=== PATIENT | female | born 1975 ===

== ENCOUNTER 2016-06-24 08:32 | Emergency (ER) | payer OTHER ==
[2016-06-24 08:32] VITALS: BMI 31.8
[2016-06-24 08:46] VITALS: O2SAT 98
[2016-06-24] MEDS ORDERED: Sodium Chloride 0.9% 1,000 ML IV STA (08:59)
[2016-06-24] MEDS ORDERED: Sodium Chloride 0.9% 1,000 ML ONE (09:05)
[2016-06-24 09:27] LABS: BASO # 0.1 K/uL (0.0-0.2); BASO % 0.9 % (0.0-2.0); EOS # 0.2 K/uL (0.0-0.7); EOS % 2.9 % (0.0-4.0); HEMATOCRIT 41.3 % (34.0-47.0); LYMPH # 1.7 K/uL (1.0-4.3); LYMPH % 20.6 % (20.0-40.0); MEAN CELL VOLUME 87.5 fL (81.0-99.0); MEAN CORPUSCULAR HGB CONC 33.2 g/dL (33.0-37.0); MEAN PLATELET VOLUME 8.5 fL (7.2-11.7); MONO # 0.6 K/uL (0.0-0.8); MONO % 7.1 % (0.0-10.0); NRBC % 0.1 % (0.0-2.0); RED CELL DISTRIBUTION WIDTH 13.7 % (11.5-14.5); WHITE BLOOD COUNT 8.2 K/uL (4.8-10.8)
[2016-06-24 09:34] LABS: CHLORIDE 98 mmol/L (98-107); POTASSIUM 3.8 mmol/L (3.6-5.2); SODIUM 137 mmol/L (132-148)
[2016-06-24 09:36] LABS: GFR AFRICAN-AMERICAN > 60
[2016-06-24 09:37] LABS: ALB/GLOB RATIO 1.3 (1.0-2.1); ALKALINE PHOSPHATASE 77 U/L (38-126); ALT/SGPT 20 U/L (9-52); AST/SGOT 18 U/L (14-36); BILIRUBIN,TOTAL 0.3 mg/dL (0.2-1.3); BLOOD UREA NITROGEN 11 mg/dL (7-17); CALCIUM 8.9 mg/dl (8.6-10.4); CARBON DIOXIDE 27 mmol/L (22-30); GLUCOSE,RANDOM 87 mg/dL (65-105)
[2016-06-24 09:41] LABS: RBC URINE 10 /hpf (0-3); URINE BACTERIA OCC (<OCC); URINE BILIRUBIN NEGATIVE (NEGATIVE); URINE BLOOD 1+ (NEGATIVE); URINE COLOR Yellow (YELLOW); URINE GLUCOSE (UA) NORMAL (Normal); URINE KETONE NEGATIVE (NEGATIVE); URINE LEUKOCYTE ESTERASE 2+ Leu/uL (Negative); URINE PROTEIN NEGATIVE (NEGATIVE); URINE UROBILINOGEN NORMAL mg/dL (0.2-1.0); WBC URINE 15 /hpf (0-5)
--- NOTE | 2016-06-24 10:49 | C.PDOC ---
History Of Present Illness 41 y/o female presents to the ED complaining of several episodes of dizziness since this morning. She denies any headache, nausea, vomiting, chest pain, fever , chills, vision changes, syncope, or other complaints. Time Seen by Provider: 06/24/16 08:50 Chief Complaint (Nursing): Dizziness/Lightheaded History Per: Patient History/Exam Limitations: no limitations Onset/Duration Of Symptoms: Hrs, Intermittent Episodes, Gradual, Persistent Current Symptoms Are (Timing): Still Present Fall Associated With With Symptoms: No Recent travel outside of the [place]: No Past Medical History Reviewed: Historical Data, Nursing Documentation, Vital Signs Vital Signs: Last Vital Signs Temp 98.3 F 06/24/16 11:20 Pulse 64 06/24/16 11:20 Resp 18 06/24/16 11:20 BP 138/82 06/24/16 11:20 Pulse Ox 98 06/24/16 11:28 - Medical History PMH: Migraine Surgical History: No Surg Hx - [facility] Procedures APPLICATION OF SPLINT (01/07/14) BILAT ENDOS OCC TUBE NEC (02/09/13) Family History: States: Unknown Family Hx - Social History Hx Tobacco Use: No Hx Alcohol Use: No Hx Substance Use: No - Immunization History Hx Tetanus Toxoid Vaccination: No Hx Influenza Vaccination: Yes Hx Pneumococcal Vaccination: No Review Of Systems Except As Marked, All Systems Reviewed And Found Negative. Constitutional: Negative for: Fever, Chills Eyes: Negative for: Vision Change Cardiovascular: Negative for: Chest Pain Gastrointestinal: Negative for: Nausea, Vomiting Neurological: Positive for: Dizziness. Negative for: Headache, Other (syncope) Physical Exam - Physical Exam Appears: Non-toxic, No Acute Distress Skin: Normal Color, Warm, Dry Head: Atraumatic, Normacephalic Eye(s): bilateral: Normal Inspection, PERRL, EOMI Neck: Normal ROM, Supple Chest: Symmetrical Cardiovascular: Rhythm Regular, No Murmur Respiratory: Normal Breath Sounds, No Rales, No Rhonchi, No Wheezing Gastrointestinal/Abdominal: Normal Exam, Soft, No Tenderness Back: Normal Inspection, No CVA Tenderness Extremity: Normal ROM, No Swelling Neurological/Psych: Oriented x3, Normal Speech, Normal Cognition ED Course And Treatment - Laboratory Results Result Diagrams: 06/24/16 09:23 06/24/16 09:23 ECG: Interpreted By Me ECG Rhythm: Sinus Rhythm (with sinus arrhythmia) ECG Interpretation: No Acute Changes Rate From EC (bpm) O2 Sat by Pulse Oximetry: 98 (ra) Pulse Ox Interpretation: Normal Progress Note: EKG, blood work, urinalysis and urine HCG were ordered. Patient was treated with Meclizine and IV fluids. On reevaluation, patient reports improvement of dizziness; denies any neurologic complaints, is ambulating well, is tolerating PO. UA is with signs of UTI. Will discharge patient home on appropriate medications. Patient was instructed to follow up with PMD/clinic in 1-2 days for further evaluation or return to ED if symptoms persist or worsen. Disposition - Disposition Disposition: HOME/ ROUTINE Disposition Time: 11:19 Condition: STABLE Additional Instructions: Follow up with PMD within 1-2 days. Return to ED if feel worse. Prescriptions: Nitrofurantoin Macrocrystals [Macrobid] 1 cap PO BID #14 cap Meclizine [Meclizine*] 25 mg PO Q6 #30 tab Instructions: Vertigo (ED), Urinary Tract Infection in Women (ED) - Clinical Impression Clinical Impression: Vertigo, UTI (urinary tract infection) - PA / MISSING PERSONS INVESTIGATOR / Resident Statement MD/DO has reviewed & agrees with the documentation as recorded. - Scribe Statement The provider has reviewed the documentation as recorded by the Scribe (Natalya Barth) All medical record entries made by the Scribe were at my direction and personally dictated by me. I have reviewed the chart and agree that the record accurately reflects my personal performance of the history, physical exam, medical decision making, and the department course for this patient. I have also personally directed, reviewed, and agree with the discharge instructions and disposition.
[2016-06-24 11:39] VITALS: BP 138/82; PULSE 64; RESP 18; TEMP 98.3
--- NOTE | 2016-06-25 12:11 | CARD ---
APPROVED REPORT EKG Measurement Heart [id number] <Conclusion> Normal sinus rhythm with sinus arrhythmia Normal ECG
== END 2016-06-24 11:35 | disposition home or self-care (01) ==
LOC: C.ER 08:32
DX: N39.0 Urinary tract infection, site not specified (principal); R42 Dizziness and giddiness
CPT/HCPCS: 80053; 81001; 84703; 85025; 85610; 85730; 93005; 96360; 99285; J7040

== ENCOUNTER 2016-09-04 05:43 | Inpatient (IN) | payer OTHER ==
[2016-08-14 11:58] VITALS: BMI 40.6
[2016-09-04] MEDS ORDERED: Lactated Ringer's 1,000 ML IV ONE ×3 (06:30→08:24)
[2016-09-04] MEDS ORDERED: Dexamethasone 4 mg/1 ml IVPB ONE (07:00)
[2016-09-04] MEDS ORDERED: ceFAZolin IV 2 gm in Dextrose 2 GM/100 ML BAG IVPB ONE (07:00)
[2016-09-04] MEDS ORDERED: Lactated Ringer's 1,000 ML IV SCH (07:00)
[2016-09-04] MEDS ORDERED: Bupivacaine HCl 0.25% PF (10 ml) Inj ONE ×2 (07:12)
[2016-09-04] MEDS ORDERED: Bupivacaine/Epi 0.25%-1:200,000 10 ml PF inj IJ ONE (07:12)
[2016-09-04] MEDS ORDERED: ceFAZolin IV 2 gm in Dextrose 1 GM/50 ML BAG IVPB ONE (07:13)
[2016-09-04] MEDS ORDERED: Propofol 10 mg/ml Inj (20 ML) ONE (07:34)
[2016-09-04] MEDS ORDERED: Midazolam 2 MG/2 ML VIAL ONE (07:35)
[2016-09-04] MEDS ORDERED: Succinylcholine Chloride 20 mg/ml Syr (5 ml) IV ONE (08:47)
[2016-09-04] MEDS ORDERED: Rocuronium 10 mg/ml (10 ml) ONE (08:47)
[2016-09-04] MEDS ORDERED: Neostigmine Methylsulfate 3mg/3ml Syringe IV ONE (08:49)
--- NOTE | 2016-09-04 08:55 | PCM.SURG1 ---
<Philipp Cox J - Last Filed: 09/04/16 08:52> Surgeon's Initial Post Op Note - Surgeon's Notes Surgeon: Dr. Mortensen Dianetic Counselor: Dr. Cox Type of Anesthesia: General Endo Pre-Operative Diagnosis: Morbid Obesity Post-Operative Diagnosis: Morbid Obesity Operation Performed: Laparoscopic sleeve gastrectomy, TAP block, upper endoscopy Specimen/Specimens Removed: Partial gastrectomy Estimated Blood Loss: EBL {In ML}: 25 Blood Products Given: N/A Drains Used: No Drains Post-Op Condition: Good Date of Surgery/Procedure: 09/04/16 Time of Surgery/Procedure: 08:54 <Ahs Mortensen P - Last Filed: 09/04/16 09:13> Surgeon's Initial Post Op Note - Surgeon's Notes Operative Findings: No hernia, no leak
--- NOTE | 2016-09-04 09:11 | OP ---
PROCEDURE DATE: 09/04/2016 INTRAOPERATIVE UPPER ENDOSCOPY DATE OF OPERATION: 09/04/2016 PREOPERATIVE DIAGNOSIS: Morbid obesity. POSTOPERATIVE DIAGNOSES: Morbid obesity. PROCEDURES: Intraoperative upper endoscopy. SURGEON: Philipp Cox MD. ANESTHESIA: General. COMPLICATIONS: None. SPECIMEN: None. INDICATIONS: This is a 41-year-old female undergoing laparoscopic sleeve gastrectomy for an intraope rative upper endoscopy for evaluation and leak test. PROCEDURE: An Olympus upper endoscope was inserted into the oropharynx and passed bluntly through th e hypopharynx into the proximal esophagus. Insufflation was begun and the scope was passed under dir ect vision through the proximal, mid and distal esophagus with care taken to look at a full 360 degre es of exposed mucosa. Beginning at the fundus, the gastric sleeve staple line was carefully examined and found to have no evidence of hemorrhage or intraluminal clot. All excess insufflated air was as pirated and the scope was withdrawn. The patient remained intubated in the operating room for comple tion of the operative procedure. Philipp Cox MD cc: [id number] TT: 09/04/2016 09:10:59 jn
[2016-09-04] MEDS ORDERED: HYDROmorphone 0.5 mg/0.5 ml ISec IVP PRN ×2 (09:12→09:14)
[2016-09-04] MEDS: HYDROmorphone 0.5 mg/0.5 ml ISec IVP PRN ×2 (09:45→10:50)
[2016-09-04] MEDS ORDERED: Enoxaparin 40 mg Syringe SC SCH (10:00)
--- NOTE | 2016-09-04 12:00 | OP ---
PROCEDURE DATE: 09/04/2016 PREOPERATIVE DIAGNOSIS: Morbid obesity. POSTOPERATIVE DIAGNOSES: Morbid obesity. PROCEDURES: 1. Laparoscopic sleeve gastrectomy. 2. Transversus abdominis plane block. 3. Intraoperative esophagogastroduodenoscopy. SURGEON: Dr. Mortensen. SITE ENGINEER: Dr. Philipp Cox. ANESTHESIA: General. FINDINGS: Negative intraoperative leak test. No evidence of hiatal hernia. COMPLICATIONS: None. ____ DISPOSITION: Stable to PACU. ESTIMATED BLOOD LOSS: 10 mL. INDICATION FOR PROCEDURE: This is a 41-year-old female with a BMI of 40.8 who failed conservative me thods of weight loss. She had comorbid conditions of gastroesophageal reflux disease and weight loss surgery was indicated based on NIH criteria. After all risks, benefits, alternatives were explained to patient, patient agreed upon a sleeve gastrectomy in which I agree and the procedure details are listed below. SPECIMENS: Partial gastrectomy. PROCEDURE: The patient was brought to the operating room and placed in supine position on the operat ing room table. General endotracheal anesthesia was induced by the anesthesia team. Precautions were taken to pad the patient well using gel padding of the back, feet and arms to prevent postoperative pain. The patient was prepped and draped in the usual sterile fashion. The physician assistant placed a Veress needle in the left upper quadrant below the costal margin to establish pneumoperitoneum to 15 mmHg. A 12 mm Optiview port along with zero-degree laparoscope was inserted i n the midline superior to the umbilicus with no evidence of injury upon entering. Next, the scope wa s changed to 45 degrees and the Veress needle was removed under vision. Under laparoscopic guidance, a transversus abdominis plane block was performed by injecting 30 mL of 0.25% Marcaine into multiple sites along the right flank. The solution was injected into the plane between the internal oblique and the transversus abdominis muscles to aid in postoperative analgesia. This procedure was repeated on the left flank for maximum efficacy. A 15 mm trocar was placed in the right midclavicular line a nayeli the umbilicus. Additionally, two 5 mm trocars were placed in the right and left flank below the costal margin. All trocars were placed under direct vision. A liver retractor was (Mikel) was inserted through a separate stab incision 1 cm below the xiphoi d process and was attached to a retracting device secured to the left side of the table. The entire procedure was performed laparoscopically. The primary surgeon operated from the right side of the pa tient and the physician assistant operated from the left side of the patient. The lesser sac was entered by first dividing the gastrocolic ligament along the midpoint of the great er curvature of the stomach with a harmonic scalpel. The dissection was performed close to the stoma ch to avoid the gastroepiploic artery. Dissection proceeded proximally towards the angle of His. Th e physician assistant dissected out and ligated the short gastric arteries with the harmonic scalpel. Care was taken to avoid injury to the spleen. We then returned to the point where the dissection began more distally on the greater curvature. The physician assistant used the harmonic scalpel and continued distally al kayla the greater curvature to approximately 4 to 6 cm from the pylorus. At this point, a 40 Hungarian bougie was inserted by the anesthesia team and was aligned medially and pa ssed under vision to the region of the pylorus. The physician assistant grasped the greater curvature of the s tomach with a loop grasper and retracted laterally. The sleeve gastrectomy was performed using seque ntial firings of a 60 mm EndoGIA stapler ([employer]) bolstered with Seamguard. For the initial two firi ngs a green load was used where the stomach tissue was thicker. The second firing utilized a gold lo ad. The remaining firings were done using a blue load. Care was taken to avoid narrowing the distal aspect of the sleeve. The anterior and posterior vagus nerves were identified and preserved through out their course. Sequential firings of the stapler continued up to the angle of His. Care was taken to ensure equal tension along the entire staple line to prevent kinking of the sleeve. An upper end oscopy was performed (to be dictated separately) in order to evaluate the gastric mucosa as well as p erform a leak test. The distal stomach was occluded and the upper abdomen was filled with saline susana ution in order to submerge the entire staple line. Air was insufflated and no bubbles were visualize d. The saline was suctioned off and the scope removed. The resected stomach was placed in a large E ndo Catch bag for later removal. The area was carefully inspected and hemostasis ensured. The liver retractor and all ports were ami cecile under vision and pneumoperitoneum evacuated. The specimen was removed through the 15 mm port sit e and was sent off the field. The fascia of the 15 mm port site was closed using #0 Vicryl interrupt ed suture on the Endoclose device. The skin on all port sites was closed with #4-0 Monocryl subcutic ular sutures followed by Dermabond for dressing. All sponge and instrument counts were correct at th e end of the procedure. The patient tolerated the procedure well, was extubated in the operating tim m and was transferred to the recovery room in stable condition. Ash Mortensen DO cc: [id number] TT: 09/04/2016 11:59:08 kym
[2016-09-04] MEDS ORDERED: HYDROmorphone 1 mg/ml ISec ONE (14:14)
[2016-09-04] MEDS ORDERED: HYDROmorphone 1 mg/ml ISec IVP PRN (17:00)
[2016-09-04] MEDS: Dextrose 5%/0.45% NS 1,000 ML IV SCH ×2 (21:55→23:09)
[2016-09-05] MEDS: Dextrose 5%/0.45% NS 1,000 ML IV SCH ×3 (04:41→14:42)
[2016-09-05 06:15] LABS: BASO % 0.2 % (0.0-2.0); HEMATOCRIT 36.3 % (34.0-47.0); LYMPH # 1.3 K/uL (1.0-4.3); LYMPH % 9.9 % (20.0-40.0); MEAN CELL VOLUME 87.1 fL (81.0-99.0); MEAN CORPUSCULAR HEMOGLOBIN 28.5 pg (27.0-31.0); MEAN CORPUSCULAR HGB CONC 32.7 g/dL (33.0-37.0); MEAN PLATELET VOLUME 8.6 fL (7.2-11.7); MONO # 0.9 K/uL (0.0-0.8); PLATELET COUNT 199 K/uL (130-400); RED CELL DISTRIBUTION WIDTH 13.7 % (11.5-14.5); WHITE BLOOD COUNT 12.7 K/uL (4.8-10.8)
[2016-09-05 06:27] LABS: CHLORIDE 103 mmol/L (98-107); POTASSIUM 3.9 mmol/L (3.6-5.2); SODIUM 134 mmol/L (132-148)
[2016-09-05 06:30] LABS: CARBON DIOXIDE 22 mmol/L (22-30); GFR AFRICAN-AMERICAN > 60
[2016-09-05 06:31] LABS: BLOOD UREA NITROGEN 9 mg/dL (7-17); CALCIUM 8.4 mg/dl (8.6-10.4); GLUCOSE,RANDOM 122 mg/dL (65-105)
[2016-09-05] MEDS ORDERED: Sodium Chloride 0.9% 1,000 ML IV ONE (07:37)
--- NOTE | 2016-09-05 07:48 | CP.PCM.PN ---
Subjective - Date & Time of Evaluation Date of Evaluation: 09/05/16 Time of Evaluation: 06:45 - Subjective Subjective: SURGERY PROGRESS NOTE FOR DR. SALMERON 41F seen and examined at bedside. States she is doing better this morning after pain last night. States she has mild nausea but not vomiting. No passing gas, no BM yet. Objective - Vital Signs/Intake and Output Vital Signs (last 24 hours): Temp Pulse Resp BP Pulse Ox 98.6 F 88 20 102/65 95 09/05/16 04:00 09/05/16 04:04 09/05/16 04:00 09/05/16 04:00 09/05/16 04:00 Intake and Output: 09/05/16 09/05/16 06:59 18:59 Intake Total 1850 Output Total 2075 Balance -225 - Medications Medications: Current Medications Enoxaparin Sodium (Lovenox) 40 mg SC DAILY REPLACED BY [facility] Famotidine (Pepcid) 20 mg IVP Q12 REPLACED BY [facility] Last Admin: 09/04/16 21:53 Dose: 20 mg Lactated Ringer's (Lactated Ringer's) 1,000 mls @ 150 mls/hr IV .Q6H40M KHLOE Dextrose/Sodium Chloride (Dextrose 5%/0.45% Ns 1000 Ml) 1,000 mls @ 150 mls/hr IV .Q6H40M REPLACED BY [facility] Last Admin: 09/05/16 04:41 Dose: 150 mls/hr Sodium Chloride (Sodium Chloride 0.9%) 1,000 mls @ 1,000 mls/hr IV .Q1H ONE Stop: 09/05/16 08:36 Ketorolac Tromethamine (Toradol) 30 mg IVP Q6 REPLACED BY [facility] Last Admin: 09/05/16 05:58 Dose: 30 mg Metoclopramide HCl (Reglan) 10 mg IVP Q6H PRN PRN Reason: Nausea/Vomiting Morphine Sulfate (Morphine) 2 mg IVP Q2 PRN PRN Reason: Pain, severe (8-10) Last Admin: 09/04/16 21:52 Dose: 2 mg Ondansetron HCl (Zofran Inj) 4 mg IVP Q4 PRN PRN Reason: Nausea/Vomiting Last Admin: 09/04/16 18:48 Dose: 4 mg Scopolamine (Transderm-Scop) 1 patch TD Q3D KHLOE - Labs Labs: 09/05/16 06:05 09/05/16 06:05 - Constitutional Appears: Non-toxic, No Acute Distress - Head Exam Head Exam: ATRAUMATIC - ENT Exam ENT Exam: Mucous Membranes Moist - Respiratory Exam Respiratory Exam: Clear to Ausculation Bilateral, NORMAL BREATHING PATTERN - Cardiovascular Exam Cardiovascular Exam: REGULAR RHYTHM, +S1, +S2 - GI/Abdominal Exam GI & Abdominal Exam: Soft, Tenderness. absent: Distended, Firm, Guarding, Rigid , Rebound Additional comments: mildly tender to palpation. Incisions clean dry intact. - Neurological Exam Neurological Exam: Alert, Awake, Oriented x3 - Skin Skin Exam: Dry, Intact, Normal Color, Warm Assessment and Plan - Assessment and Plan (Free Text) Assessment: 41F s/p laparoscopic sleeve gastrectomy POD#1 Plan: - pain control, anti-emetic patch - liter bolus - UGI this morning - Advance diet if results normal - GI/DVT ppx - possible DC today Further recs discuss with Attending Srinath Mas, PGY1
[2016-09-05] MEDS ORDERED: Iohexol 240 200 ML IJ ONE (07:52)
[2016-09-05] MEDS ORDERED: Barium Sulfate for Susp 96% w/w 176g Bottle PR ONE (07:52)
[2016-09-05 08:37] LABS: NEUTROPHIL 84 % (50-75); TOTAL CELLS COUNTED 100
[2016-09-05] MEDS ORDERED: Enoxaparin 40 mg Syringe SC SCH (10:00)
[2016-09-05 12:50] VITALS: BP 112/73; PULSE 86; RESP 18; TEMP 98.6; O2SAT 97
--- NOTE | 2016-09-05 13:53 | RAD ---
Upper GI series dated 09/05/2016. History: Status post that gastric sleeve procedure. Limited distal esophagram and upper GI series performed with water-soluble contrast media. The study demonstrates postoperative gastric sleeve procedure. There is mild dilatation of the distal esophagus at the EG junction and some minor delay of contrast material exiting from the distal esophagus into the stomach. No contrast extravasation. . Impression: Postoperative changes of gastric sleeve. No definitive radiographic evidence of contrast extravasation/postoperative leak. Mild dilatation of the distal esophagus well with some minimal delay of contrast material exiting the distal esophagus into the stomach. . Findings discussed with referring surgeon Dr. Skinner upon completion and review of the exam
== END 2016-09-05 18:27 | disposition home or self-care (01) | DRG 621 ==
LOC: C.9S 05:43 → C.6T 16:47
PROVIDERS: ADMIT Surgery; ATTEND Surgery
PROC: 0DB64Z3 Excision of Stomach, Percutaneous Endoscopic Approach, Vertical (ICD-10-PCS; principal; 2016-09-04 07:45)
PROC: 0DJ08ZZ Inspection of Upper Intestinal Tract, Via Natural or Artificial Opening Endoscopic (ICD-10-PCS; 2016-09-04 07:45)
DX: E66.01 Morbid (severe) obesity due to excess calories (principal); K21.9 Gastro-esophageal reflux disease without esophagitis; Z68.41 Body mass index [BMI] 40.0-44.9, adult

== ENCOUNTER 2017-02-15 10:42 | Emergency (ER) | payer OTHER ==
[2017-02-15 10:42] VITALS: BMI 40.6
[2017-02-15 10:45] VITALS: BP 122/67; PULSE 98; RESP 17; TEMP 97.7; O2SAT 100
[2017-02-15] MEDS ORDERED: Bacitracin 500 Units/gm Oint Foilpak UD ONE (10:55)
[2017-02-15] MEDS ORDERED: Lidocaine 1% Inj (20ml) ONE (10:55)
--- NOTE | 2017-02-15 11:26 | C.PDOC ---
History Of Present Illness 41 y/o female presents to the ER for a laceration to the right palm near the thumb that occurred [employer]. Patient notes she was opening the window and a piece of plastic punctured her hand. Bleeding was controlled. Tetanus not up to date. Denies fever, chills, discharge, or any other complaints. Time Seen by Provider: 02/15/17 11:05 Chief Complaint (Nursing): Abnormal Skin Integrity History Per: Patient History/Exam Limitations: no limitations Onset/Duration Of Symptoms: Hrs Current Symptoms Are (Timing): Still Present Location Of Injury: Right: Hand (near thumb) Quality Of Symptoms: Painful Severity: Mild Recent travel outside of the [place] States: No Additional History Per: Patient Past Medical History Reviewed: Historical Data, Nursing Documentation, Vital Signs Vital Signs: Last Vital Signs Temp 97.7 F 02/15/17 10:43 Pulse 98 H 02/15/17 10:43 Resp 17 02/15/17 10:43 BP 122/67 02/15/17 10:43 Pulse Ox 100 02/15/17 12:32 - Medical History PMH: Migraine Denies: Chronic Kidney Disease Surgical History: - [facility] Procedures APPLICATION OF SPLINT (01/07/14) BILAT ENDOS OCC TUBE NEC (02/09/13) EXCISION OF STOMACH, PERCUTANEOUS ENDOSCOPIC APPROACH, VERT (09/04/16) INSPECTION OF UPPER INTESTINAL TRACT, ENDO (09/04/16) Family History: States: Unknown Family Hx - Social History Hx Tobacco Use: No Hx Alcohol Use: No Hx Substance Use: No - Immunization History Hx Tetanus Toxoid Vaccination: No Hx Influenza Vaccination: Yes (01/2017) Hx Pneumococcal Vaccination: No Review Of Systems Except As Marked, All Systems Reviewed And Found Negative. Skin: Positive for: Other (laceration hand) Physical Exam - Physical Exam Appears: Non-toxic, No Acute Distress Skin: Warm, Dry Head: Atraumatic, Normacephalic Eye(s): bilateral: Normal Inspection Neck: Normal ROM Extremity: Normal ROM (Right thumb), Capillary Refill (<2secs), Other (1cm superficial laceration to the base of the right thumb, volar surface. No active bleeding.) Pulses: Left Radial: Normal, Right Radial: Normal Neurological/Psych: Oriented x3, Normal Speech ED Course And Treatment O2 Sat by Pulse Oximetry: 100 Pulse Ox Interpretation: Normal Laceration - Laceration Repair hand right Wound Length (In cm): 1.0 Description Of Wound: Linear, Clean Wound Cleansed With: Sterile Saline Wound Examination: Irrigated With Saline, No FB With Wound Exploration, No Tendon Injury With Wound Exploration Wound Closure: Steri Strips (2), Skin Glue (Dermabond) Wound Complexity: Simple Medical Decision Making Medical Decision Making: Wound was well irrigated with NS. No active bleeding. Minimal wound separation with movement. Discussed with patient suture vs dermabond repair and patient is afraid of needles thus dermabond and steri-strips applied. Applied aluminum finger splint to keep area immobilized. Instruct patient on wound care and to change dressing daily. Advise return to hospital for any signs of infection. Disposition Counseled Patient/Family Regarding: Diagnosis, Need For Followup - Disposition Disposition: HOME/ ROUTINE Disposition Time: 11:25 Condition: STABLE Additional Instructions: Keep area clean and dry. May wash gently with soap and water, do not use alcohol or iodine solution. Change dressing 1-2 times daily. Return to ER if fever occurs, redness or swelling around wound, pus in the wound. Skin glue was used to close your wound, do not apply ointment to area as it may dissolve glue. Glue patch will gradually fall off in few days. Instructions: Skin Adhesive Care (ED) Forms: [facility] (Sing[place]an) - POA Present On Arrival: None - Clinical Impression Clinical Impression: Hand laceration - Scribe Statement The provider has reviewed the documentation as recorded by the Scribe Alexandrea baxter All medical record entries made by the Scribe were at my direction and personally dictated by me. I have reviewed the chart and agree that the record accurately reflects my personal performance of the history, physical exam, medical decision making, and the department course for this patient. I have also personally directed, reviewed, and agree with the discharge instructions and disposition.
== END 2017-02-15 11:48 | disposition home or self-care (01) ==
LOC: C.ER 10:42
DX: S61.411A Laceration without foreign body of right hand, initial encounter (principal); W45.8XXA Other foreign body or object entering through skin, initial encounter; Y93.89 Activity, other specified; Y92.89 Other specified places as the place of occurrence of the external cause; Z23 Encounter for immunization

== ENCOUNTER 2018-05-20 02:34 | Emergency (ER) | payer OTHER ==
[2018-05-20 02:34] VITALS: BMI 40.6
[2018-05-20 02:48] VITALS: BP 127/50; RESP 20; TEMP 98.1; O2SAT 98
--- NOTE | 2018-05-20 02:50 | C.PDOC ---
History Of Present Illness 43 year old female presents with chest pain describes to be on the right anterior chest wall area, parasternal, sharp, increases with movement and deep inspiration. Chief Complaint (Nursing): Chest Pain History Per: Patient History/Exam Limitations: no limitations Onset/Duration Of Symptoms: Hrs Current Symptoms Are (Timing): Still Present Quality: Sharp Exacerbating Factors: Movement, Deep Breathing Alleviating Factors: None Recent travel outside of the [place]: No Past Medical History Reviewed: Historical Data, Nursing Documentation, Vital Signs - Medical History PMH: Migraine Denies: Chronic Kidney Disease Surgical History: - [facility] Procedures APPLICATION OF SPLINT (01/07/14) BILAT ENDOS OCC TUBE NEC (02/09/13) EXCISION OF STOMACH, PERCUTANEOUS ENDOSCOPIC APPROACH, VERT (09/04/16) INSPECTION OF UPPER INTESTINAL TRACT, ENDO (09/04/16) Family History: States: Unknown Family Hx - Social History Hx Tobacco Use: No Hx Alcohol Use: No Hx Substance Use: No - Immunization History Hx Tetanus Toxoid Vaccination: No Hx Influenza Vaccination: Yes (01/2017) Hx Pneumococcal Vaccination: No Review Of Systems Constitutional: Negative for: Fever, Chills Cardiovascular: Positive for: Chest Pain. Negative for: Palpitations Respiratory: Negative for: Cough, Shortness of Breath Gastrointestinal: Negative for: Nausea, Vomiting Neurological: Negative for: Weakness, Numbness Physical Exam - Physical Exam Appears: Non-toxic, Other (Mild distress) Skin: Normal Color, Warm, Dry Head: Atraumatic, Normacephalic Eye(s): bilateral: Normal Inspection Oral Mucosa: Moist Chest: Tenderness (Mild to right parasternal area) Cardiovascular: Rhythm Regular Respiratory: Normal Breath Sounds, No Rales, No Rhonchi, No Wheezing Gastrointestinal/Abdominal: Soft, No Tenderness Neurological/Psych: Oriented x3, Normal Speech ED Course And Treatment - Laboratory Results Result Diagrams: 05/20/18 03:00 05/20/18 03:00 ECG: Interpreted By Me, Viewed By Me ECG Rhythm: Sinus Rhythm ECG Interpretation: Normal, No Acute Changes Interpretation Of ECG: NSR. normal tracings, Rate From EC O2 Sat by Pulse Oximetry: 98 (Room air) Pulse Ox Interpretation: Normal - Radiology CXR: Interpreted by Me, Viewed By Me CXR Interpretation: Yes: No Acute Disease, Other (normal chest film.). No: Infiltrates Progress Note: EKG, blood work, and CXR ordered. Toradol administered. Disposition Counseled Patient/Family Regarding: Diagnosis - Disposition Referrals: Javy Morris MD [Primary Care Provider] - Disposition: HOME/ ROUTINE Disposition Time: 03:51 Condition: STABLE Prescriptions: Naproxen 375 mg PO TIDPC #20 tablet Instructions: Costochondritis (DC) Forms: [facility] [employer] ([place]) - POA Present On Arrival: None - Clinical Impression Clinical Impression: Acute chest wall pain - Scribe Statement The provider has reviewed the documentation as recorded by the Scribe Osbaldo Purdy All medical record entries made by the Scribe were at my direction and personally dictated by me. I have reviewed the chart and agree that the record accurately reflects my personal performance of the history, physical exam, medical decision making, and the department course for this patient. I have also personally directed, reviewed, and agree with the discharge instructions and disposition.
[2018-05-20 03:03] LABS: BASO # 0.1 K/uL (0.0-0.2); BASO % 0.9 % (0.0-2.0); EOS # 0.3 K/uL (0.0-0.7); EOS % 3.5 % (0.0-4.0); HEMOGLOBIN 13.2 g/dL (11.0-16.0); LYMPH # 2.2 K/uL (1.0-4.3); LYMPH % 28.1 % (20.0-40.0); MEAN CELL VOLUME 86.8 fL (81.0-99.0); MEAN CORPUSCULAR HEMOGLOBIN 28.1 pg (27.0-31.0); MEAN CORPUSCULAR HGB CONC 32.3 g/dL (33.0-37.0); MEAN PLATELET VOLUME 8.6 fL (7.2-11.7); MONO # 0.6 K/uL (0.0-0.8); MONO % 7.6 % (0.0-10.0); NEUT # 4.8 K/uL (1.8-7.0); NEUT % 59.9 % (50.0-75.0); RBC 4.69 Mil/uL (3.80-5.20); RED CELL DISTRIBUTION WIDTH 13.5 % (11.5-14.5)
[2018-05-20 03:15] VITALS: PULSE 74
[2018-05-20 03:25] LABS: ALB/GLOB RATIO 1.5 (1.0-2.1); ALBUMIN 4.2 g/dL (3.5-5.0); ALT/SGPT 14 U/L (9-52); AST/SGOT 21 U/L (14-36); BLOOD UREA NITROGEN 13 mg/dL (7-17); GFR NON-AFRICAN AMERICAN > 60
--- NOTE | 2018-05-20 10:13 | RAD ---
HISTORY: chest pain COMPARISON: Chest x-ray performed 06/28/16 TECHNIQUE: Chest PA and lateral FINDINGS: LUNGS: No focal consolidation. Please note that chest x-ray has limited sensitivity for the detection of pulmonary masses. PLEURA: No significant pleural effusion identified. No definite pneumothorax . CARDIOVASCULAR: Heart size appears within normal limits. No atherosclerotic calcification present. OSSEOUS STRUCTURES: Mild degenerative changes of the spine. VISUALIZED UPPER ABDOMEN: Unremarkable. OTHER FINDINGS: None. IMPRESSION: No focal consolidation.
--- NOTE | 2018-05-21 11:01 | CARD ---
APPROVED REPORT Date of service: 05/20/2018 EKG Measurement Heart [id number] <Conclusion> Normal sinus rhythm with sinus arrhythmia Normal ECG
== END 2018-05-20 04:03 | disposition home or self-care (01) ==
LOC: C.ER 02:34 → SUPCPDRO 02:34 → C.ER 04:03
DX: R07.89 Other chest pain (principal)
CPT/HCPCS: 71046; 80053; 84484; 85025; 85378; 93005; 96374; 99284; J1885